=== PATIENT | male | born 1975 | race Caucasian/White ===

== ENCOUNTER 2017-03-04 20:20 | Emergency (ER) | payer SELFPAY ==
[~2017-03-04] VITALS: Ht 177.8 cm; Wt 74.8 kg
[2017-03-04 20:24] VITALS: Ht 177.8 cm; Wt 74.8 kg
--- NOTE | 2017-03-04 21:46 | ERD ---
ER Documentation Chief Complaint Chief Complaint epigastric pain for 2 weeks HPI This 41 yo male pt reports epigastric pain, pt reports that he eats a lot of chili, reports acid taste in mouth pain is worse after eating , denies SOB, CP, Palpations, or dizziness ROS All systems reviewed and are negative except as per history of present illness. Allergies Allergies: Coded Allergies: No Known Allergy (Unverified , 03/04/17) Physical Exam Vitals Vital Signs Date Time Temp Pulse Resp B/P Pulse Ox O2 Delivery O2 Flow Rate FiO2 03/04/17 20:24 98.7 90 16 154/86 Vss, triage notes reviewed blood pressure is noted to be elevated 154/86, patient reports he does have hypertension Physical Exam Const: Well-nourished well-appearing well-hydrated 41-year-old male patient no acute distress Eyes: Conjunctiva ejected, EOMI, ENT: Normal External Ears, Nose and Mouth, mucous membranes moist. Neck: Full range of motion..~ No meningismus. Resp: S rises and falls symmetrically, clear to auscultation bilaterally rales wheezes or rhonchi Cardio: S1-S2, no S3-S4. Regular rate and rhythm, no murmurs Abd: Soft, epigastric pain Skin: No petechiae or rashes Back: No midline or flank tenderness Neur: Awake and alert Psych: Normal Mood and Affect Results 24 hrs Current Medications Medications (Trade) Dose Ordered Sig/Fernanda Route PRN Reason Start Time Stop Time Status Last Admin Dose Admin Ranitidine HCl (Zantac) 150 mg ONCE ONCE PO 03/04/17 22:00 03/04/17 22:01 DC Departure Diagnosis: Primary Impression: Epigastric abdominal pain Condition: Good Patient Instructions: Epigastric Pain (Uncertain Cause) [facility] Additional Instructions: Thank you for for coming to [facility] for your care today. Please ask your nurse or provider if you have questions about your care today and do not leave until all your questions have been answered. Please use any medications given as directed and follow-up with your doctor (or the doctor you were referred to) in the next 2-3 days. If you do not have a primary care doctor you [place] [facility] [place] You may also use motrin and tylenol as needed for fever and/or pain unless instructed otherwise by your provider or nurse. Indications for more urgent follow-up have been discussed, but you may return to the Emergency Department at ANY time for any worrisome or worsening symptoms. If you have abdominal pain, please know that no test or exam you received is perfect and you should follow up within 8 hours for continued pain. If you had any imaging studies today, such as an X-Ray or CT Scan, these studies will be reviewed later by a radiologist. You will be called if there are important findings that were not identified today, so make sure the contact information you provided at registration is correct. If you received any narcotic pain control medicine today, such as Vicodin, Morphine or Dilaudid, your coordination and judgment may be affected for a number of hours. Please do not drive or operate heavy machinery, and you may want someone to assist you at home. If you were given a prescription for narcotic medication, be aware that it is very addictive- use sparingly and only if necessary. HERLINDA HOLDEN Mar 04, 2017 21:46
[2017-03-04] MEDS ORDERED: RANITIDINE 150 MG TAB PO ONE (22:00)
[2017-03-04] MEDS ORDERED: RANI150T9 PO (22:07)
[2017-03-04 22:24] VITALS: BP 155/88; PULSE 82; RESP 19; TEMP 98.7
== END 2017-03-04 22:28 | disposition home or self-care (01) ==
LOC: FTE 20:20
DX: R10.13 Epigastric pain (principal)
CPT/HCPCS: 99283